=== PATIENT | male | born 1940 | race Caucasian/White ===

== ENCOUNTER 2016-09-13 21:38 | Emergency (ER) | payer MEDICARE ==
[2013-02-24 06:40] VITALS: BMI 35.4
[~2016-09-13 21:38] MED LIST: ASPIRIN325 MG PO; NORCO 10/325 TA1 TA1 PO; PLAVIX75 MG PO; PRAVACHOL10 MG; SOMA350 MG PO
== END 2016-09-14 00:26 | disposition home or self-care (01) ==
LOC: D.ER 21:38
DX: T78.3XXA Angioneurotic edema, initial encounter (principal); I10 Essential (primary) hypertension

== ENCOUNTER → 2017-01-19 07:43 | Outpatient (CLI) | payer MEDICARE ==
[2013-02-24 06:40] VITALS: BMI 35.4
== END | disposition home or self-care (01) ==
LOC: D.RAD 07:43
DX: M54.5 Low back pain (principal)

== ENCOUNTER 2017-05-19 07:23 | Outpatient (CLI) | payer MEDICARE ==
[~2017-05-19] VITALS: Ht 167.6 cm; Wt 100.0 kg
--- NOTE | ~2017-05-19 | HEMODYNAMI ---
PATIENT:LILLY GOOD MEDICAL RECORD: [id number] : 38 LOCATION:[facility] ADMISSION DATE: 05/19/17 Generatedon:05/19/20179:04 Patient name: LILLY GOOD Patient #: [id number] SSN: D OB: 1940 Date of study: 05/19/2017 Page: Of Hemodynamic Procedure Report Patient Data Patient Demographics Procedure consent was obtained First Name: LILLY Gender: Male Last Name: FLORENTINO : 1940 [facility] Initial: ZO Age: 77 year(s) Patient #: [id number] Race: Unknown Additional ID: [id number] Contact details Address: [facility] [address] State: [place] City: [place] Zip code: [address] Admission Admission Data Admission Date: 05/19/2017 Admission Time: 7:23 Procedure Procedure Types Cath Procedure Diagnostic Procedure LHC LHC w/Coronaries Miscellaneous Procedures Moderate Sedation up to 15 minutes Procedure Description Procedure Date Procedure Date: 05/19/2017 Procedure Start Time: 8:50 Procedure End Time: 9:01 Procedure Staff Name Function Ricardo Perez MD Performing Physician Cindy Sears RT Monitor Diane Goetz RT Scrub Sera Parker RN Nurse Procedure Data Cath Procedure Fluoroscopy Diagnostic fluoroscopy Total fluoroscopy Time: 2.6 time: 2.6 min min Diagnostic fluoroscopy Total fluoroscopy dose: 982 dose: 982 mGy mGy Contrast Material Contrast Material Type Amount (ml) Isovue 300 96 Entry Location Entry Primary Successful Side Size Upsize Upsize Entry Closure Succes sful Closure Location (Fr) 1 (Fr) 2 (Fr) Remarks Device Remarks Femoral Right 5 Fr 6 Fr Exoseal artery Short Estimated blood loss: 10 ml Diagnostic catheters Device Type Used For End Catheter Placement MULTIPACK Pigtail 5 Fr Procedure catheter MULTIPACK JL 4.0 5Fr Procedure catheter MULTIPACK 3DRC 5Fr Procedure catheter Procedure Complications No complications Procedure Medications Medication Administration Route Dosage 0.9% NaCl I.V. 100 ml/hr Oxygen NC 2 l/min Lidocaine 2% added to field 20 Heparin Flush Bag added to field 2 bags (1000units/500ml NS) Fentanyl I.V. 50 mcg Versed I.V. 2 mg Fentanyl I.V. 50 mcg Integrilin (Bolus I.V. 9 ml 2mg/ml) Heparin Bolus I.V. 4000 units Plavix P.O. 600 mg Hemodynamics Rest Heart Rate: 63 (bpm) Snapshots Pre Cath Intra NCS Post Cath Vital Signs Time Heart Resp SPO2 etCO2 NIBP (mmHg) Rhythm Pain Sedation Rate (ipm) (%) (mmHg) Status Level (bpm) 8:41:19 76 19 97 15.7 142/84(118) NSR 0 (11) 10(A) , No pain 8:46:08 60 16 97 34.3 132/79(106) NSR 0 (11) 10(A) , No pain 8:50:18 73 16 96 12.7 125/72(102) NSR 0 (11) 9(A) , No pain 8:54:32 69 16 96 32.8 121/76(99) NSR 0 (11) 9(A) , No pain 8:58:46 69 19 95 38.1 123/69(101) NSR 0 (11) 10(A) , No pain Medications Time Medication Route Dose Verified Delivered Reason Note s Effectiveness by by 8:40:27 0.9% NaCl I.V. 100ml/hr Ricardo Zamora used for Chris Parker RN procedure 8:40:35 Oxygen NC 2 l/min Ricardo Zamora Per physician Chris Parker RN 8:40:43 Lidocaine 2% added 20ml Ricardo Silva for local to vial Chris Perez MD anesthetic field 8:40:51 Heparin Flush added 2 bags Ricardo Silva used for Bag to Chris Perez MD procedure (1000units/500ml field NS) 8:48:16 Fentanyl I.V. 50 mcg Ricadro Zamora for sedation Chris Parker RN 8:48:24 Versed I.V. 2 mg Ricardo Potterfany for sedation Chris Parker RN 8:51:48 Fentanyl I.V. 50 mcg Ricardo Zamora for sedation Chris Parker RN 8:55:12 Heparin Bolus I.V. 4000 Ricardo Zamora for veri fied units Chris Parker RN anticoagulation by 8:56:12 Integrilin I.V. 9ml Ricardo Zamora for wast e (Bolus 2mg/ml) Chris Parker RN anticoagulation 1ML 9:03:16 Plavix P.O. 600 mg Ricardo Zamora for Chris Parker RN antiplatelet therapy Procedure Log Time Note 8:27:31 Procedure type changed to Cath procedure, Diagnostic procedure, LHC, LHC w/Coronaries, Miscellaneous Procedures, Moderate Sedation up to 15 minutes 8:33:57 Diagnostic Cath status Elective 8:34:02 Sera Parker RN sent for patient. Start room use. 8:34:03 Time tracking: Regular hours 8:34:08 Plan of Care:Hemodynamics will remain stable., Cardiac rhythm will remain stable., Comfort level will be maintained., Respiratory function will remain adequate., Patient/ family verbilizes understanding of procedure., Procedure tolerated without complication., Recovers from procedure without complications.. 8:34:15 Patient received from Pre/Post Procedure Room to CCL 2 Alert and oriented. Tansferred to table in Supine position. 8:34:17 Warm blankets applied, and ran hugger turned on for patient comfort. 8:34:18 Correct patient and procedure confirmed by team. 8:34:20 Signed procedure consent form obtained from patient. 8:36:15 ECG and BP/O2 sat monitors applied to patient. 8:36:22 H&P Date Dictated: 05/19/2017 H&P Addendum completed by physician on day of procedure. (MUST COMPLETE FOR ALL OUTPATIENTS), New H&P dictated by physician.. 8:36:23 Pre-procedure instructions explained to patient. 8:36:23 Pre-op teaching completed and patient verbalized understanding. 8:36:25 Family in waiting room. 8:36:26 Patient NPO since Midnight. 8:36:29 Is the patient allergic to Iodine/contrast media? No. 8:36:30 Was the patient premedicated? No 8:36:32 Is patient on blood thinner?No 8:36:38 Patient diabetic? No. 8:36:40 Previous problem with sedation/anesthesia? No ? 8:36:41 Snore? Yes 8:36:42 Sleep apnea? No 8:36:43 Deviated septum? No 8:36:44 Opens mouth fully? Yes 8:36:45 Sticks out tongue? Yes 8:36:47 Airway obstruction? No ? 8:36:50 Dentures? No ? 8:36:55 Pre procedure: right dorsailis pedis pulse 1+ Palpable, but thready & weak; easily obliterated 8:36:56 Pre procedure: left dorsailis pedis pulse 1+ Palpable, but thready & weak; easily obliterated 8:36:58 Patient pain scale 0/10 ?. 8:37:03 IV patent on arrival in left forearm with 0.9% NaCl at [facility]. 8:37:07 Lab results completed and on chart. 8:37:45 Right groin area was prepped with chlora-prep and draped in sterile fashion 8:37:47 Alarms reviewed by R. N. 8:37:47 Sharps counted by scrub and verified by R.N. 8:40:13 Vital chart was started 8:40:27 0.9% NaCl 100ml/hr I.V. was administered by Sera Parker RN; used for procedure; 8:40:35 Oxygen 2 l/min NC was administered by Sera Parker RN; Per physician; 8:40:43 Lidocaine 2% 20ml vial added to field was administered by Ricardo Perez MD; for local anesthetic; 8:40:51 Heparin Flush Bag (1000units/500ml NS) 2 bags added to field was administered by Ricardo Perez MD; used for procedure; 8:42:43 Baseline sample Acquired. 8:42:48 Full Disclosure recording started 8:43:01 Physician paged 8:47:23 Physician arrived 8:47:24 --------ALL STOP TIME OUT------ 8:47:25 Final Timeout: patient, procedure, and site verified with staff and physician. All members of the team are in agreement. 8:47:26 Right groin site verified by team. 8:47:31 Physical assessment completed. ASA score P 2 - A patient with mild systemic disease as per Ricardo Perez MD. 8:47:41 Sedation plan: IV Moderate Sedation Medication:Versed, Fentanyl 8:47:53 Use device set Femoral Dx 8:48:16 Fentanyl 50 mcg I.V. was administered by Sera Parker RN; for sedation; 8:48:24 Versed 2 mg I.V. was administered by Sera Parker RN; for sedation; 8:50:32 Procedure started. 8:50:42 Local anesthetic to right femoral artery with Lidocaine 2% by Ricardo Perez MD.INITIAL ACCESS ONLY 8:50:53 A 5 Fr sheath was inserted into the Right Femoral artery 8:51:02 ACIST Syringe (56285) opened to sterile field. 8:51:02 Bag Decanter (2002S) opened to sterile field. 8:51:03 Medline Cath Pack ([id number]) opened to sterile field. 8:51:03 SHEATH 5FR [place] (RQX904) opened to sterile field. 8:51:04 DIAGNOSTIC WIRE .035 260cm J wire (616158) opened to sterile field. 8:51:06 ACIST Hand Control (79566) opened to sterile field. 8:51:06 ACIST Manifold (63209) opened to sterile field. 8:51:07 DIAGNOSTIC Multipack 5Fr catheter set (WE4853) opened to sterile field. 8:51:09 Tegaderm 4 x 4 (1626W) opened to sterile field. 8:51:10 PERCUTANEOUS ENTRY 19GA needle opened to sterile field. 8:51:30 LV angiography performed. 8:51:38 A MULTIPACK Pigtail 5 Fr catheter was advanced over the wire and used for Procedure. 8:51:45 EF : 55 % 8:51:48 Fentanyl 50 mcg I.V. was administered by Sera Parker RN; for sedation; 8:51:48 Catheter removed. 8:51:56 A MULTIPACK JL 4.0 5Fr catheter was advanced over the wire and used for Procedure. 8:53:08 Catheter removed. 8:53:22 A MULTIPACK 3DRC 5Fr catheter was advanced over the wire and used for Procedure. 8:53:33 RCA angiography performed. 8:55:01 INFLATOR Merit BasixCompak (TQ2051) opened to sterile field. 8:55:02 SHEATH 6FR [place] (IJU926) opened to sterile field. 8:55:03 WHISPER 190cm wire ([id number]) opened to sterile field. 8:55:10 Catheter removed. 8:55:12 Heparin Bolus 4000 units I.V. was administered by Sera Parker RN; for anticoagulation; verified by 8:55:22 Sheath upsized to a 6 Fr Short. 8:56:12 Integrilin (Bolus 2mg/ml) 9ml I.V. was administered by Sera Parker RN; for anticoagulation; waste 1ML 8:56:22 GUIDE 6FR AR 2.0 catheter ([id number]) opened to sterile field. 8:56:33 6 Fr AR2 guide catheter was inserted over the wire 8:56:38 Whisper wire advanced. 8:56:53 Wire advanced across lesion. 8:56:53 Wire advanced across lesion. 8:58:38 Inflation Number: 1 A CHICHO RX 2.5 x 12 stent ([id number]) was prepped and advanced across the R PDA. The stent was deployed at 11 CHANI for 0:10 (min:sec). 8:59:08 EXOSEAL 6Fr (EX600) opened to sterile field. 8:59:21 Wire removed. 8:59:22 Guide catheter removed. 8:59:32 Sheath removed intact; hemostasis achieved with Exoseal to the Right Femoral artery. 8:59:35 Procedure ended.(Physican Out) 8:59:46 Fluoroscopy time 02.60 minutes. 8:59:50 Fluoroscopy dose: 982 mGy 8:59:50 Flurop Dose total: 982 8:59:56 Contrast amount:Isovue 300 96ml. 9:00:00 Sharps counted by scrub and verified by R.N. 9:00:03 Insertion/operative site no bleeding no hematoma. 9:00:06 Post-op/insertion site Right Femoral artery dressed using a 4 x 4 and Tegaderm. 9:00:10 Post right femoral artery:stable 9:00:12 Post Procedure Pulses reassessed and unchanged 9:00:19 Post-procedure physical assessment completed. ASA score P 2 - A patient with mild systemic disease as per Ricardo Perez MD. 9:00:27 Post procedure rhythm: unchanged. 9:00:31 Estimated blood loss: 10 ml 9:00:32 Post procedure instruction explained to patient.Patient verbalizes understanding. 9:00:53 Procedure and supply charges have been captured, reviewed, submitted and are correct. 9:01:42 Procedure Complication : No complications 9:01:45 Vital chart was stopped 9:01:46 See physician's report for complete and final results. 9:01:47 Report given to Pre/Post Procedure Room. 9:01:51 Patient transfered to Pre/Post Procedure Room with Stretcher. 9:01:55 Procedure ended. 9:01:55 Full Disclosure recording stopped 9:02:04 ACC-PCI Only Patient was given prescriptions, or instructed by Ricardo Perez MD to start/continue the following medications upon discharge: Plavix 9:02:06 End room use (Document Last) 9:03:16 Plavix 600 mg P.O. was administered by Sera Parker RN; for antiplatelet therapy; Intervention Summary Intervention Notes Time ActionType Lesion and Equipment Used Action# Pressure Duration Attributes 8:58:38 Place stent R PDA CHICHO RX 2.5 x 1 11 00:10 12 stent ([id number]) Device Usage Item Name Manufacture Quantity Catalog Hospital Part [facility] Lot# / Number Charge Number Stock Stock Serial# Code ACIST Syringe Acist 1 56128 237543 858232 650553 20 (68285) Medical Systems Inc Bag Decanter Microtek 1 2001S 134138 29888 709012 5 (2001S) Medical Inc. Medline Cath Cardinal 1 [id number] 894291 14081 089076 5 Pack Health ([id number]) SHEATH 5FR Terumo 1 FZP665 417639 531639 093683 40 [place] (NFI634) DIAGNOSTIC St Reji 1 [id number] 086795 435851 411858 30 WIRE .035 260cm J wire (226290) ACIST Hand Acist 1 05784 457213 975263 186814 5 Control Medical (45385) Systems Inc ACIST Manifold Acist 1 06675 919033 878917 837466 5 (73451) Medical Systems Inc DIAGNOSTIC Cardinal 1 PC7118 343253 47876 242257 30 Multipack 5Fr Health catheter set (QE9266) Tegaderm 4 x 4 3M 1 1626W 306553 952578 489474 5 (1626W) PERCUTANEOUS Cook Medical 1 D49808 810863 154373 5 ENTRY 19GA needle MULTIPACK Cardinal 1 186841 5 Pigtail 5 Fr Health catheter MULTIPACK JL Cardinal 1 717046 5 4.0 5Fr Health catheter MULTIPACK 3DRC Cardinal 1 291677 5 5Fr catheter Health INFLATOR Merit Merit 1 IM4273 292532 786547 897292 15 Media [facility] Medical (QG2470) SHEATH 6FR Terumo 1 ITE654 257958 888482 664891 40 [place] (SEQ389) WHISPER 190cm [place] 1 [id number] 733135 445351 592925 5 wire Vascular ([id number]) GUIDE 6FR AR Medtronic 1 [id number] 266712 85795 756431 1 2.0 catheter (ZS7ED79) CHICHO RX 2.5 x Medtronic 1 [id number] 780818 5725484 597379 5 [id number] 12 stent ([id number]) EXOSEAL 6Fr Cardinal 1 EX600 000075 477236 007620 10 (EX600) Health Signature Audit [place] Stage Time Signature Unsigned Intra-Procedure 05/19/2017 Cindy Sears 9:04:35 AM RT(R) Signatures Monitor : Cindy Sears Signature : RT Date : Time : [place] [id number] [place] [address]
--- NOTE | ~2017-05-19 | OP ---
PATIENT NAME: LILLY GOOD MEDICAL RECORD: [id number] :38 LOCATION:D.CAT ADMISSION DATE: SURGEON: SERENITY SEWELL MD DATE OF OPERATION: 05/19/2017 PROCEDURES: 1. PTCA stent to RCA. 2. Left heart catheterization. 3. Selective coronary angiography. 4. Left ventriculogram. INDICATION: Angina and coronary artery disease. PROCEDURE IN DETAIL: After informed consent was obtained and after a detailed explanation of the risks, benefits as well as alternative therapies, the patient elected to proceed with angiogram and angioplasty. The right femoral area was prepped and draped in normal sterile fashion. Right femoral artery was cannulated via modified Seldinger technique with placement of 6-Colomb[place] sheath. All catheters exchanged through this sheath. FINDINGS: Left ventriculogram was performed in standard 30-degree MANZANO view, reveals good cardiac wall motion throughout all segments. Overall ejection fraction estimated at 55%. SELECTIVE CORONARY ANGIOGRAPHY: 1. Left main showed no significant angiographic disease. 2. Left anterior descending has previously placed stents, these are widely patent with no significant restenosis. No disease elsewise throughout the LAD or its branches. 3. Left circumflex has 95% stenosis in the mid distal vessel. 4. Right coronary artery has 80% stenosis of the PDA. PTCA STENT OF THE RIGHT CORONARY ARTERY: The stent used was a 2.5 x 12 mm [place]. Result was 0% residual stenosis. OVERALL IMPRESSION: Successful percutaneous transluminal coronary angioplasty stent of the right coronary artery going from 80% initial stenosis to 0% residual stenosis. PLAN: PTCA stent of the left circumflex in the near future. TRANSINT:[id number] Voice Confirmation ID: [id number] DOCUMENT ID: [id number] SERENITY SEWELL MD at 1323 CC: [id number] DICTATION DATE: 05/19/17 0903 BOWLING BALL MARKER: 05/19/17 1113 [facility] CLI 05/19/[address] [address]
--- NOTE | ~2017-05-19 | HP ---
PATIENT: LILLY RAZO MEDICAL RECORD: [id number] ACCOUNT: [id number] LOCATION:[facility]QU[facility] : 38 ADMISSION DATE: 05/19/17 HISTORY AND PHYSICAL EXAMINATION DIAGNOSES: 1. Angina. 2. Coronary artery disease. 3. Hypertension. 4. Hyperlipidemia. 5. Abnormal nuclear stress test. HISTORY OF PRESENT ILLNESS: Mr. Razo presents with increasing anginal symptomatology, underwent risk stratification with stress testing revealing significant reversible ischemia, now brought for cardiac catheterization. REVIEW OF SYSTEMS: The patient reports easy bruising but reports no swollen glands. The patient reports no fever, no night sweats, no significant weight gain, no significant weight loss. No significant exercise tolerance. The patient reports no dry eyes, no irritation, no vision change. Patient reports no difficulty hearing and no ear pain. Patient reports no frequent nose bleeds or nose and sinus problems. Patient reports on arm pain on exertion. No shortness of breath while lying down. No history of heart murmur. Patient reports no cough, no wheezing or coughing up blood. Patient reports no abdominal pain, no vomiting. Normal appetite. No diarrhea and not vomiting blood. No nausea and no constipation. Patient reports no incontinence. No difficulty urinating. No hematuria. No increased frequency. Patient reports no muscle aches. No weakness, no arthralgias, no back pain. No swelling of the extremities. Patient reports no abnormal mole, no jaundice, no rashes. Reports no loss of consciousness. No weakness and no numbness. No seizures, dizziness, or headaches. The patient reports no depression, no sleep disturbance, feeling safe in a relationship and no alcohol abuse. Patient reports on fatigue. Reports no runny nose or sinus pressure. No itching, no hives, and no frequent sneezing. PHYSICAL EXAMINATION: GENERAL APPEARANCE: Well-nourished, well-developed, appears stated age. Level of distress, comfortable. PSYCHIATRIC: Mental status, alert, normal affect. Orientation, oriented to time, place and person. EYES: Lids and conjunctiva, noninjected. No discharge, no pallor. ENT: Lips, teeth, gums, normal dentition. Oropharynx, no cyanosis, no pallor. NECK: Carotid arteries, bilateral normal upstroke, no bruits, no thrills. JUGULAR VEINS: No jugular venous pressure or distention. CERVICAL LYMPH NODES: Nontender, nonenlarged. THYROID: Not enlarged. Nontender. No nodules. LUNGS: Respiratory effort, unlabored. CHEST: Normal curvature. No thoracic deformity. No chest wall tenderness. Percussion, resonant. Auscultation, clear. No wheezes, no rales, no rhonchi. CARDIOVASCULAR: Precordial exam, nondisplaced. No heaves or pericardial thrills. Rate and rhythm, regular. Heart sounds, normal S1, normal S2. No S3, no gallop, no rub. Systolic murmur, not heard. Diastolic murmur, not heard. EXTREMITIES: No cyanosis, no edema. Peripheral pulses, full and equal in all extremities, except as noted. No bruits appreciated. ABDOMEN: Soft, nondistended. Normal aorta. No bruit. Nontender. No masses. HISTORY AND PHYSICAL [id number] LILLY RAZO Liver, nontender, no hepatomegaly. Spleen, nontender, no splenomegaly. MUSCULOSKELETAL: No joint tenderness. No joint swelling. No erythema. NEUROLOGICAL: Normal gait, normal strength, normal tone. SKIN: Warm and dry. OVERALL IMPRESSION: Anginal symptomatology with abnormal nuclear stress test. We will proceed with coronary angiography. Further care depends upon findings of the angiography. TRANSINT:[id number] Voice Confirmation ID: [id number] DOCUMENT ID: [id number] SERENITY SEWELL MD at 1323 CC: [id number] DICTATION DATE: 05/19/17 0844 CDS SALES ADVISOR: 05/19/17 0855 [facility] CLI 05/19/17 [place] [id number] [place] [id number]
[~2017-05-19 07:23] MED LIST changes: -PRAVACHOL10 MG; +PRAVACHOL20 MG PO
[2017-05-19] MEDS ORDERED: CARTIA XT180 MG PO (07:37)
[2017-05-19] MEDS ORDERED: HCTZ25 MG PO (07:37)
[2017-05-19 07:55] LABS: BASOPHILS 0.3 % (0-2); EOSINOPHILS 2.6 % (0-7); HEMATOCRIT 45.9 % (42.0-54.0); HEMOGLOBIN 15.4 g/dL (13.5-17.5); IMMATURE GRANULOCYTES 0.1 % (0-5); LYMPHOCYTES 45.7 % (15-50); MCH 30.7 pg (26.0-34.0); MCHC 33.6 g/dL (31.0-37.0); MCV 91.4 fL (80.0-100.0); MEAN PLATELET VOLUME 11.3 fL (7.4-10.4); MONOCYTES 12.3 % (2-11); PLATELET COUNT 159 10x3/uL (130-400); RBC 5.02 10x6/uL (4.20-6.10); RDW 14.7 % (11.5-14.5); WBC 6.8 10x3/uL (4.8-10.8)
[2017-05-19 07:59] VITALS: BP 166/83; Ht 167.6 cm; Wt 100.0 kg
[2017-05-19 08:03] LABS: ANION GAP 9.5 mmol/L (8-16); CARBON DIOXIDE 29.3 mmol/L (21.0-32.0); CREATININE - SERUM 1.1 mg/dL (0.6-1.3); POTASSIUM - SERUM 3.8 mmol/L (3.5-5.1)
[2017-05-19] MEDS ORDERED: BAYER CHEWABLE81 MG PO (09:43)
[2017-05-19] MEDS ORDERED: PLAVIX75 MG PO (09:43)
== END 2017-05-19 13:00 | disposition home or self-care (01) ==
LOC: D.CATH 07:23
PROVIDERS: Internal Medicine Interventional Cardiology
DX: I25.119 Atherosclerotic heart disease of native coronary artery with unspecified angina pectoris (principal); I10 Essential (primary) hypertension; E78.5 Hyperlipidemia, unspecified; R94.30 Abnormal result of cardiovascular function study, unspecified; Z01.812 Encounter for preprocedural laboratory examination
CPT/HCPCS: 93458; C9600

== ENCOUNTER 2017-05-21 07:41 | Outpatient (CLI) | payer MEDICARE ==
[~2017-05-21] VITALS: Ht 167.6 cm; Wt 100.0 kg
--- NOTE | ~2017-05-21 | HEMODYNAMI ---
PATIENT:LILLY GOOD MEDICAL RECORD: [id number] : 38 LOCATION:[facility] ADMISSION DATE: 05/21/17 Generatedon:05/21/201710:14 Patient name: LILLY GOOD Patient #: [id number] SSN: D OB: 1940 Date of study: 05/21/2017 Page: Of Hemodynamic Procedure Report Patient Data Patient Demographics Procedure consent was obtained First Name: LILLY Gender: Male Last Name: FLORENTINO : 1940 [facility] Initial: ZO Age: 77 year(s) Patient #: [id number] Race: Unknown Additional ID: [id number] Contact details Address: [facility] [address] State: [place] City: [place] Zip code: [address] Admission Admission Data Admission Date: 05/21/2017 Admission Time: 10:00 Procedure Procedure Types Cath Procedure PCI Procedure Coronary Stent Miscellaneous Procedures Moderate Sedation up to 15 minutes Procedure Description Procedure Date Procedure Date: 05/21/2017 Procedure Start Time: 9:58 Procedure End Time: 10:12 Procedure Staff Name Function Ricardo Perez MD Performing Physician Cindy Sears RT Monitor Diane Goetz RT Scrub Sera Parker RN Nurse Procedure Data Cath Procedure Fluoroscopy Diagnostic fluoroscopy Total fluoroscopy Time: 4 time: 4 min min Diagnostic fluoroscopy Total fluoroscopy dose: 540 dose: 540 mGy mGy Contrast Material Contrast Material Type Amount (ml) Isovue 300 68 Entry Location Entry Primary Successful Side Size Upsize Upsize Entry Closure Succes sful Closure Location (Fr) 1 (Fr) 2 (Fr) Remarks Device Remarks Femoral Right 6 Fr Exoseal artery Short Estimated blood loss: 10 ml Procedure Complications No complications Procedure Medications Medication Administration Route Dosage 0.9% NaCl I.V. 100 ml/hr Oxygen NC 2 l/min Lidocaine 2% added to field 20 Heparin Flush Bag added to field 2 bags (1000units/500ml NS) Fentanyl I.V. 50 mcg Versed I.V. 1 mg Versed I.V. 0.5 mg Fentanyl I.V. 25 mcg Heparin Bolus I.V. 4000 units Versed I.V. 0.5 mg Fentanyl I.V. 25 mcg Hemodynamics Rest Heart Rate: 81 (bpm) Snapshots Pre Cath Intra NCS Post Cath Vital Signs Time Heart Resp SPO2 etCO2 NIBP (mmHg) Rhythm Pain Sedation Rate (ipm) (%) (mmHg) Status Level (bpm) 9:44:33 74 16 95 0 137/103(125) Paced 0 (11) 10(A) , No pain 9:49:37 78 14 100 35.2 139/78(123) Paced 0 (11) 10(A) , No pain 9:54:53 77 14 96 15.7 133/71(115) Paced 0 (11) 10(A) , No pain 9:59:05 79 14 97 31.5 143/85(115) Paced 0 (11) 9(A) , No pain 10:03:21 81 14 96 33 152/81(124) Paced 0 (11) 9(A) , No pain 10:07:43 78 14 96 30 146/77(111) Paced 0 (11) 10(A) , No pain 10:12:01 79 10 97 28.5 133/85(122) Paced 0 (11) 10(A) , No pain Medications Time Medication Route Dose Verified Delivered Reason Not es Effectiveness by by 9:49:05 0.9% NaCl I.V. 100ml/hr Ricardo Zamora used for Chris Parker RN procedure 9:49:16 Oxygen NC 2 l/min Ricardo Zamora Per physician Chris Parker RN 9:49:22 Lidocaine 2% added 20ml Ricardo Silva for local to vial Chris Perez MD anesthetic field 9:49:31 Heparin Flush added 2 bags Ricardo Silva used for Bag to Chris Perez MD procedure (1000units/500ml field NS) 9:50:07 Fentanyl I.V. 50 mcg Ricardo Zamora for sedation Chris Parker RN 9:50:15 Versed I.V. 1 mg Ricardo Zamora for anxiety Chris Parker RN 9:56:00 Versed I.V. 0.5 mg Ricardo Zamora for anxiety Chris Parker RN 9:56:05 Fentanyl I.V. 25 mcg Ricardo Zamora for sedation Chris Parker RN 10:00:11 Heparin Bolus I.V. 4000 Ricardo Zamora for serina ified units Chris Parker RN anticoagulation by 10:01:48 Versed I.V. 0.5 mg Ricardo Zamora for anxiety Chris Parker RN 10:01:53 Fentanyl I.V. 25 mcg Ricardo Zamora for sedation Chris Parker RN Procedure Log Time Note 9:35:20 Diagnostic Cath status Elective 9:35:22 Diane Goetz RT(R) sent for patient. Start room use. 9:35:23 Time tracking: Regular hours 9:35:27 Plan of Care:Hemodynamics will remain stable., Cardiac rhythm will remain stable., Comfort level will be maintained., Respiratory function will remain adequate., Patient/ family verbilizes understanding of procedure., Procedure tolerated without complication., Recovers from procedure without complications.. 9:36:32 Patient received from Pre/Post Procedure Room to CCL 2 Alert and oriented. Tansferred to table in Supine position. 9:36:33 Warm blankets applied, and ran hugger turned on for patient comfort. 9:36:33 Correct patient and procedure confirmed by team. 9:36:35 Signed procedure consent form obtained from patient. 9:36:36 ECG and BP/O2 sat monitors applied to patient. 9:42:24 Vital chart was started 9:44:49 Baseline sample Acquired. 9:44:54 Rhythm: sinus rhythm 9:44:56 Full Disclosure recording started 9:47:27 H&P Date Dictated: 05/19/2017 Within 30 days and on chart., H&P Addendum completed by physician on day of procedure. (MUST COMPLETE FOR ALL OUTPATIENTS). 9:47:28 Pre-procedure instructions explained to patient. 9:47:28 Pre-op teaching completed and patient verbalized understanding. 9:47:31 Family in waiting room. 9:47:33 Patient NPO since Midnight. 9:47:39 Is the patient allergic to Iodine/contrast media? No. 9:47:57 Is patient on blood thinner?Yes 9:48:03 ACC The patient was administered the following blood thiners within the last 24 hours: ACCPlavix 9:48:05 Patient diabetic? No. 9:48:09 Snore? Yes 9:48:10 Sleep apnea? No 9:48:17 Dentures? No ? 9:49:05 0.9% NaCl 100ml/hr I.V. was administered by Sera Parker RN; used for procedure; 9:49:16 Oxygen 2 l/min NC was administered by Sera Parker RN; Per physician; 9:49:21 IV patent on arrival in right forearm with 0.9% NaCl at [facility]. 9:49:22 Lidocaine 2% 20ml vial added to field was administered by Ricardo Perez MD; for local anesthetic; 9:49:31 Heparin Flush Bag (1000units/500ml NS) 2 bags added to field was administered by Ricardo Perez MD; used for procedure; 9:49:31 Lab results completed and on chart. 9:49:36 Right groin area was prepped with chlora-prep and draped in sterile fashion 9:49:37 Alarms reviewed by R. N. 9:49:38 Sharps counted by scrub and verified by R.N. 9:49:39 Physician arrived 9:49:41 --------ALL STOP TIME OUT------ 9:49:41 Final Timeout: patient, procedure, and site verified with staff and physician. All members of the team are in agreement. 9:49:44 Right groin site verified by team. 9:49:48 Physical assessment completed. ASA score P 2 - A patient with mild systemic disease as per Ricardo Perez MD. 9:49:52 Sedation plan: IV Moderate Sedation Medication:Versed, Fentanyl 9:50:07 Fentanyl 50 mcg I.V. was administered by Sera Parker RN; for sedation; 9:50:15 Versed 1 mg I.V. was administered by Sera Parker RN; for anxiety; 9:52:37 Zero performed for pressure channel P1 9:56:00 Versed 0.5 mg I.V. was administered by Sera Parker RN; for anxiety; 9:56:05 Fentanyl 25 mcg I.V. was administered by Sera Parker RN; for sedation; 9:57:52 Procedure started. 9:58:05 Use device set [facility] PCI 9:58:17 Local anesthetic to right femoral artery with Lidocaine 2% by Ricardo Perez MD.INITIAL ACCESS ONLY 9:59:01 Zero performed for pressure channel P1 9:59:08 Zero performed for pressure channel P1 9:59:27 A 6 Fr Short sheath was inserted into the Right Femoral artery 9:59:32 INFLATOR Merit BaspreciousCompak ([id number]) opened to sterile field. 9:59:33 SHEATH 6FR Lincoln ([id number]) opened to sterile field. 9:59:52 CHOICE PT Extra Support 182cm wire ([id number]) opened to sterile field. 10:00:11 Heparin Bolus 4000 units I.V. was administered by Sera Parker RN; for anticoagulation; verified by 10:00:53 6 Fr XB guide catheter was inserted over the wire 10:00:59 pt ex wire advanced. 10:01:05 Wire advanced across lesion. 10:01:48 Versed 0.5 mg I.V. was administered by Sera Parker RN; for anxiety; 10:01:53 Fentanyl 25 mcg I.V. was administered by Sera Parker RN; for sedation; 10:02:36 Inflation number: 1 A EUPHORA 2.0 x 15 Balloon ([id number]) was prepped and advanced across the Mid CX, then inflated to 7 CHANI for 0:12 (min:sec). 10:02:50 Inflation number: 2 The EUPHORA 2.0 x 15 Balloon ([id number]) was reinflated across the Mid CX, to 7 CHANI for 0:08 (min:sec). 10:03:09 Balloon removed over the wire. 10:05:36 Inflation Number: 3 A CHICHO RX 2.25 x 22 stent ([id number]) was prepped and advanced across the Mid CX. The stent was deployed at 9 CHANI for 0:09 (min:sec). 10:06:01 Inflation number: 4 The stent balloon was then re-inflated across the Mid CX to 15 CHANI for 0:08 (min:sec). 10:06:14 Stent balloon re-inserted over wire. 10:06:21 EXOSEAL 6Fr (EX600) opened to sterile field. 10:08:04 Sheath removed intact; hemostasis achieved with Exoseal to the Right Femoral artery. 10:08:14 Procedure ended.(Physican Out) 10:08:24 Fluoroscopy time 04.00 minutes. 10:09:22 Flurop Dose total: 540 10:: Fluoroscopy dose: 540 mGy 10:09:26 Contrast amount:Isovue 300 68ml. 10:09:28 Sharps counted by scrub and verified by R.N. 10:09:30 Insertion/operative site no bleeding no hematoma. 10:09:34 Post-op/insertion site Right Femoral artery dressed using a 4 x 4 and Tegaderm. 10:09:46 Post Procedure Pulses reassessed and unchanged 10:09:52 Post-procedure physical assessment completed. ASA score P 2 - A patient with mild systemic disease as per Ricardo Perez MD. 10:09:55 Post procedure rhythm: unchanged. 10:09:57 Estimated blood loss: 10 ml 10:09:59 Post procedure instruction explained to patient.Patient verbalizes understanding. 10:10:09 Procedure type changed to Cath procedure, PCI procedure, Coronary Stent, Miscellaneous Procedures, Moderate Sedation up to 15 minutes 10:10:10 Procedure and supply charges have been captured, reviewed, submitted and are correct. 10:10:35 Use device set Femoral Dx 10:10:40 PERCUTANEOUS ENTRY 19GA needle opened to sterile field. 10:10:41 Tegaderm 4 x 4 (1626W) opened to sterile field. 10:10:44 ACIST Manifold (10837) opened to sterile field. 10:10:45 ACIST Hand Control (88217) opened to sterile field. 10:10:49 DIAGNOSTIC WIRE .035 260cm J wire (760126) opened to sterile field. 10:10:51 Medline Cath Pack ([id number]) opened to sterile field. 10:10:52 Bag Decanter (2002S) opened to sterile field. 10:10:53 ACIST Syringe (94828) opened to sterile field. 10:12:19 Procedure Complication : No complications 10:12:25 Vital chart was stopped 10:12:25 See physician's report for complete and final results. 10:12:27 Report given to Pre/Post Procedure Room. 10:12:30 Patient transfered to Pre/Post Procedure Room with Stretcher. 10:12:32 Procedure ended. 10:12:32 Full Disclosure recording stopped 10:12:35 End room use (Document Last) Intervention Summary Intervention Notes Time ActionType Lesion and Equipment Used Action# Pressure Duration Attributes 10:02:36 Inflate Mid CX EUPHORA 2.0 x 1 7 00:12 balloon 15 Balloon ([id number]) 10:02:50 Reinflate Mid CX EUPHORA 2.0 x 2 7 00:08 balloon 15 Balloon ([id number]) 10:05:36 Place stent Mid CX CHICHO RX 2.25 x 3 9 00:09 22 stent ([id number]) 10:06:01 Reinflate Mid CX CHICHO RX 2.25 x 4 15 00:08 stent 22 stent balloon ([id number]) Device Usage Item Name Manufacture Quantity Catalog Number Hospital Part Current M inimal Lot# / Charge Number Stock Stock Serial# Code INFLATOR Merit Merit 1 [id number] 113854 568853 [id number] 1 5 Revisu ([id number]) SHEATH 6FR Terumo 1 MFI189 738609 232716 748669 4 0 Lincoln ([id number]) CHOICE PT Arcanum 1 [id number] 016805 511032 927892 5 Extra Support Scientific 182cm wire ([id number]) EUPHORA 2.0 x Medtronic 1 [id number] 304327 303324 530695 5 [id number] 15 Balloon ([id number]) CHICHO RX 2.25 x Medtronic 1 [id number] 943241 5970865 269339 5 [id number] 22 stent ([id number]) EXOSEAL 6Fr Cardinal 1 EX600 141009 126184 196019 1 0 (EX600) [facility] PERCUTANEOUS [facility] 1 V31834 662122 314519 5 ENTRY 19GA needle Tegaderm 4 x 4 3M 1 1626W 612728 245462 854060 5 (1626W) ACIST Manifold Acist 1 99869 426602 113297 353388 5 (98805) Medical Systems Inc ACIST Hand Acist 1 07756 074932 200837 057666 5 Control Medical (36664) Systems Inc DIAGNOSTIC St Reji 1 738195 072744 708504 559363 3 0 WIRE .035 260cm J wire (759990) Medline Cath Cardinal 1 [id number] 473540 [address] [facility] OmniVec ([id number]) Bag Decanter Microtek 1 2002S 709314 14689 941969 5 () Medical Inc. ACIST Syringe Acist 1 15026 338100 514883 059216 2 0 (80989) Medical Systems Inc Signature Audit [place] Stage Time Signature Unsigned Intra-Procedure 05/21/2017 Cindy Sears 10:14:32 AM RT(R) Signatures Monitor : Cindy Sears Signature : RT Date : Time : [id number] [place] [address]
--- NOTE | ~2017-05-21 | HP ---
PATIENT: LILLY GOOD MEDICAL RECORD: [id number] ACCOUNT: [id number] LOCATION:JACQUES : 38 ADMISSION DATE: 05/21/17 HISTORY AND PHYSICAL EXAMINATION ADMITTING DIAGNOSES: 1. Angina. 2. Coronary artery disease. 3. Recent percutaneous transluminal coronary angioplasty stent of the right coronary artery with concomitant disease of the left circumflex. 4. Hypertension. 5. Hyperlipidemia. HISTORY OF PRESENT ILLNESS: This is a gentleman who presents with anginal symptomatology, found to have 2-vessel disease of the RCA and circumflex, underwent successful PTCA stent of the RCA. He is now brought back for PTCA stent of circumflex. REVIEW OF SYSTEMS: The patient reports easy bruising but reports no swollen glands. The patient reports no fever, no night sweats, no significant weight gain, no significant weight loss. No significant exercise tolerance. The patient reports no dry eyes, no irritation, no vision change. Patient reports no difficulty hearing and no ear pain. Patient reports no frequent nose bleeds or nose and sinus problems. Patient reports on arm pain on exertion. No shortness of breath while lying down. No history of heart murmur. Patient reports no cough, no wheezing or coughing up blood. Patient reports no abdominal pain, no vomiting. Normal appetite. No diarrhea and not vomiting blood. No nausea and no constipation. Patient reports no incontinence. No difficulty urinating. No hematuria. No increased frequency. Patient reports no muscle aches. No weakness, no arthralgias, no back pain. No swelling of the extremities. Patient reports no abnormal mole, no jaundice, no rashes. Reports no loss of consciousness. No weakness and no numbness. No seizures, dizziness, or headaches. The patient reports no depression, no sleep disturbance, feeling safe in a relationship and no alcohol abuse. Patient reports on fatigue. Reports no runny nose or sinus pressure. No itching, no hives, and no frequent sneezing. PHYSICAL EXAMINATION: GENERAL APPEARANCE: Well-nourished, well-developed, appears stated age. Level of distress, comfortable. PSYCHIATRIC: Mental status, alert, normal affect. Orientation, oriented to time, place and person. EYES: Lids and conjunctiva, noninjected. No discharge, no pallor. ENT: Lips, teeth, gums, normal dentition. Oropharynx, no cyanosis, no pallor. NECK: Carotid arteries, bilateral normal upstroke, no bruits, no thrills. JUGULAR VEINS: No jugular venous pressure or distention. CERVICAL LYMPH NODES: Nontender, nonenlarged. THYROID: Not enlarged. Nontender. No nodules. LUNGS: Respiratory effort, unlabored. CHEST: Normal curvature. No thoracic deformity. No chest wall tenderness. Percussion, resonant. Auscultation, clear. No wheezes, no rales, no rhonchi. CARDIOVASCULAR: Precordial exam, nondisplaced. No heaves or pericardial thrills. Rate and rhythm, regular. Heart sounds, normal S1, normal S2. No S3, no gallop, no rub. Systolic murmur, not heard. Diastolic murmur, not heard. EXTREMITIES: No cyanosis, no edema. Peripheral pulses, full and equal in all HISTORY AND PHYSICAL [id number] LILLY GOOD extremities, except as noted. No bruits appreciated. ABDOMEN: Soft, nondistended. Normal aorta. No bruit. Nontender. No masses. Liver, nontender, no hepatomegaly. Spleen, nontender, no splenomegaly. MUSCULOSKELETAL: No joint tenderness. No joint swelling. No erythema. NEUROLOGICAL: Normal gait, normal strength, normal tone. SKIN: Warm and dry. OVERALL IMPRESSION: Anginal symptomatology with significant disease of the circumflex. We will proceed with percutaneous transluminal coronary angioplasty stent of the left circumflex. TRANSINT:[id number] Voice Confirmation ID: [id number] DOCUMENT ID: [id number] SERENITY SEWELL MD at 1324 CC: [id number] DICTATION DATE: 05/21/17 0953 GENERAL MILLING SUPERINTENDENT: 05/21/17 1040 [facility] CLI 05/21/17 [id number] [place] [address]
--- NOTE | ~2017-05-21 | OP ---
PATIENT NAME: LILLY GOOD MEDICAL RECORD: [id number] :38 LOCATION:D.CAT ADMISSION DATE: SURGEON: SERENITY SEWELL MD DATE OF OPERATION: 05/21/2017 PROCEDURES: 1. PTCA stent of the left circumflex. 2. Selective coronary angiography. INDICATION: Angina and coronary artery disease. PROCEDURE IN DETAIL: After informed consent was obtained and after detailed explanation of risks, benefits as well as alternative therapies, the patient elected to proceed with angiogram and angioplasty. The right femoral area was prepped and draped in normal sterile fashion. Right femoral artery was cannulated via modified Seldinger technique with placement of 6-Irish sheath. All catheters exchanged through this sheath. FINDINGS: The left circumflex has a 95% stenosis in the mid vessel. This was addressed with a 2.25 x 22 mm Donte stent. Result was 0% residual stenosis. OVERALL IMPRESSION: Successful percutaneous transluminal coronary angioplasty stent of the left circumflex going from 95% initial stenosis to 0% residual. TRANSINT:[id number] Voice Confirmation ID: [id number] DOCUMENT ID: [id number] SERENITY SEWELL MD at 1324 CC: [id number] DICTATION DATE: 05/21/17 1011 [employer] SUPERVISOR: 05/21/17 1223 [facility] CLI 05/21/[address] [address]
[~2017-05-21 07:41] MED LIST changes: +BAYER CHEWABLE81 MG PO; +CARTIA XT180 MG PO; +HCTZ25 MG PO
[2017-05-21 08:03] VITALS: Ht 167.6 cm; Wt 100.0 kg
[2017-05-21 08:21] LABS: BASOPHILS 0.2 % (0-2); EOSINOPHILS 2.4 % (0-7); HEMATOCRIT 45.3 % (42.0-54.0); HEMOGLOBIN 15.2 g/dL (13.5-17.5); IMMATURE GRANULOCYTES 0.2 % (0-5); LYMPHOCYTES 37.5 % (15-50); MCH 30.6 pg (26.0-34.0); MCHC 33.6 g/dL (31.0-37.0); MCV 91.3 fL (80.0-100.0); MEAN PLATELET VOLUME 11.3 fL (7.4-10.4); MONOCYTES 12.9 % (2-11); NEUTROPHILS 46.8 % (40-80); PLATELET COUNT 146 10x3/uL (130-400); RBC 4.96 10x6/uL (4.20-6.10); RDW 14.5 % (11.5-14.5); WBC 8.2 10x3/uL (4.8-10.8)
[2017-05-21 09:14] LABS: CALC OSMOLALITY 281 mosm/kg (275-300); CALCIUM 9.1 mg/dL (8.5-10.1); CARBON DIOXIDE 27.1 mmol/L (21.0-32.0); CHLORIDE - SERUM 105 mmol/L (98-107); GLUCOSE 126 mg/dL (74-106); POTASSIUM - SERUM 4.2 mmol/L (3.5-5.1); SODIUM 141 mmol/L (136-145); UREA NITROGEN 11 mg/dL (7-18); eGFR NON AFRICAN AMERICAN 77 mL/min (90-120)
== END 2017-05-21 14:00 | disposition home or self-care (01) ==
LOC: D.CATH 07:41
PROVIDERS: Internal Medicine Interventional Cardiology
DX: I25.119 Atherosclerotic heart disease of native coronary artery with unspecified angina pectoris (principal); Z95.5 Presence of coronary angioplasty implant and graft; I10 Essential (primary) hypertension; E78.5 Hyperlipidemia, unspecified; Z01.812 Encounter for preprocedural laboratory examination

== ENCOUNTER 2020-09-23 08:41 | Day surgery (SDC) | payer MEDICARE ==
[~2020-09-23] VITALS: Ht 167.6 cm; Wt 90.7 kg
--- NOTE | ~2020-09-23 | OP ---
PATIENT NAME: LILLY RAZO MEDICAL RECORD: [id number] :38 LOCATION:[facility] ADMISSION DATE: SURGEON: FAY SARGENT MD DATE OF OPERATION: 09/23/2020 PREOPERATIVE DIAGNOSIS: Foreign body, left forearm. POSTOPERATIVE DIAGNOSIS: Foreign body, left forearm. PROCEDURE PERFORMED: 1. Removal of foreign body, left forearm. 2. Incision and debridement of left forearm (skin and subcutaneous tissue). INDICATIONS FOR THE PROCEDURE: Mr. Razo is an 80-year-old male who was working in his garden 1 to 2 weeks ago when he hit his forearm on a bamboo stake. He was impaled by the end of the bamboo and removed a couple of pieces, but feels like there is still a piece present. There is an area of tenderness across the forearm with swelling and induration surrounding it. He has had some drainage from the wound as well. Ultrasound shows evidence of a foreign body within the subcutaneous tissues. I talked with the patient in clinic about his injury and need for surgical removal. Arrangements were made for him to come to the operating room today. Risks, benefits and alternatives of surgery were discussed with the patient and consent was obtained. DESCRIPTION OF THE PROCEDURE: The patient was met in the holding area where his identity and confirmation of procedure was performed. The left upper extremity was marked. He was taken to the operating room where he was placed supine on the operating table and anesthesia was administered. Tourniquet was applied to the left arm and left arm was prepped and draped in a sterile fashion. The patient received preoperative antibiotics and timeout was performed prior to initiating the case. On initiation of the case, the arm was exsanguinated and the tourniquet was raised. Total tourniquet time was 19 minutes. An elliptical incision was made around the wound at the medial forearm. The skin and subcutaneous tissue were excised and a wooden foreign body was then noted in the wound extending posteriorly in the subcutaneous tissues. It was able to be easily removed with a forceps. The foreign body measured approximately 3 cm in length. The wound tract had some surrounding areas of fatty necrosis, which was debrided with a curette. The soft tissues were debrided with the scalpel and the skin edges of the underlying necrotic tissue were excised. The wound was irrigated thoroughly with saline. The wound was then closed and the soft tissue tract of the foreign body was packed with quarter-inch iodoform. This was covered with a sterile dressing. The patient was turned back over to anesthesia where he was awakened, extubated, and taken to recovery room in stable condition. POSTOPERATIVE PLAN: The patient is going to return home with his family today. Continue his p.o. clindamycin. Plan to see him back in clinic on Wednesday and we will remove packing at that time and perform wound check. COMPLICATIONS: None. ESTIMATED BLOOD LOSS: 5 mL. ANESTHESIA: General. OPERATIVE REPORT [id number] LILLY RAZO TRANSINT:[id number] Voice Confirmation ID: [id number] DOCUMENT ID: [id number] FAY SARGENT MD CC: [id number] DICTATION DATE: 09/23/20 1323 FILTER CLEANER: 09/23/20 1704 [facility] 09/23/20 [facility] [address] [place] [address]
[2020-09-23 09:12] LABS: BASOPHILS 0.7 % (0-2); EOSINOPHILS 2.8 % (0-7); HEMATOCRIT 43.5 % (42.0-54.0); HEMOGLOBIN 14.4 g/dL (13.5-17.5); LYMPHOCYTES 32.6 % (15-50); MCH 29.8 pg (26.0-34.0); MCHC 33.1 g/dL (31.0-37.0); MEAN PLATELET VOLUME 8.7 fL (7.4-10.4); MONOCYTES 11.8 % (2-11); NEUTROPHILS 52.1 % (40-80); RBC 4.84 10x6/uL (4.20-6.10); RDW 14.5 % (11.5-14.5); WBC 5.3 10x3/uL (4.8-10.8)
[2020-09-23 09:16] LABS: ANION GAP 10.4 mmol/L (8-16); CALCIUM 8.9 mg/dL (8.5-10.1); CARBON DIOXIDE 28.8 mmol/L (21.0-32.0); CREATININE - SERUM 1.2 mg/dL (0.6-1.3); POTASSIUM - SERUM 4.2 mmol/L (3.5-5.1)
[2020-09-23 09:24] LABS: PLATELET COUNT 192 10x3/uL (130-400)
[2020-09-23 09:46] VITALS: Ht 167.6 cm; Wt 90.7 kg
== END 2020-09-23 15:00 | disposition home or self-care (01) ==
LOC: D.OPS 08:41
PROVIDERS: Anesthesiology; ATTEND Orthopaedic Surgery
DX: M79.602 Pain in left arm (principal); Z18.9 Retained foreign body fragments, unspecified material; J44.9 Chronic obstructive pulmonary disease, unspecified; J45.909 Unspecified asthma, uncomplicated; E78.5 Hyperlipidemia, unspecified

== ENCOUNTER 2020-09-25 17:09 | Inpatient (IN) | payer MEDICARE ==
[~2020-09-25] VITALS: Ht 167.6 cm; Wt 98.0 kg
[2020-09-25 17:52] LABS: BASOPHILS 0.4 % (0-2); EOSINOPHILS 0.9 % (0-7); HEMATOCRIT 40.2 % (42.0-54.0); HEMOGLOBIN 13.2 g/dL (13.5-17.5); MCH 29.5 pg (26.0-34.0); MCHC 32.9 g/dL (31.0-37.0); MCV 89.7 fL (80.0-100.0); MEAN PLATELET VOLUME 9.1 fL (7.4-10.4); MONOCYTES 10.8 % (2-11); NEUTROPHILS 60.9 % (40-80); PLATELET COUNT 183 10x3/uL (130-400); RBC 4.48 10x6/uL (4.20-6.10); RDW 14.6 % (11.5-14.5); WBC 8.5 10x3/uL (4.8-10.8)
[2020-09-25 18:00] LABS: APTT 29.5 SECONDS (22.8-39.4); CALC OSMOLALITY 284 mosm/kg (275-300); CALCIUM 8.5 mg/dL (8.5-10.1); CARBON DIOXIDE 29.6 mmol/L (21.0-32.0); CHLORIDE - SERUM 105 mmol/L (98-107); GLUCOSE 110 mg/dL (74-106); INR 1.2 (0.85-1.17); POTASSIUM - SERUM 3.9 mmol/L (3.5-5.1); PROTIME 14.1 SECONDS (11.6-15.0); SODIUM 142 mmol/L (136-145); UREA NITROGEN 16 mg/dL (7-18); eGFR NON AFRICAN AMERICAN 76 mL/min (90-120)
[2020-09-25 18:22] LABS: ALBUMIN 3.5 g/dL (3.4-5.0); ALKALINE PHOSPHATASE 46 U/L (30-120); ALT (SGPT) 24 U/L (10-68); BILIRUBIN - TOTAL 0.23 mg/dL (0.2-1.3); CKMB 6.3 U/L (0.0-3.6); CREATINE KINASE 154 UL (21-232); MAGNESIUM - SERUM 2.2 mg/dL (1.8-2.4); PROTEIN - SERUM 6.2 g/dL (6.4-8.2)
[2020-09-25 19:00] VITALS: BP 125/71
--- NOTE | 2020-09-25 19:39 | NUR ---
ATTEMPTED TO CALL REPORT TO FLOOR NURSE NOT AVAILABLE AT THIS TIME.
[2020-09-25 21:03] LABS: CKMB 83.9 U/L (0.0-3.6)
[2020-09-25 21:13] LABS: CREATINE KINASE 545 UL (21-232)
[2020-09-25 21:32] VITALS: BP 156/79
[2020-09-25] MEDS ORDERED: HCTZ25 MG PO (21:33)
[2020-09-26] VITALS (15 sets, daily range): BP systolic 97–162; BP diastolic 45–79; Ht 167.6 cm; Wt 98.0 kg
[2020-09-26 03:19] LABS: BASOPHILS 0.6 % (0-2); EOSINOPHILS 1.2 % (0-7); HEMOGLOBIN 13.8 g/dL (13.5-17.5); LYMPHOCYTES 29.6 % (15-50); MCH 30.2 pg (26.0-34.0); MCHC 33.7 g/dL (31.0-37.0); MCV 89.6 fL (80.0-100.0); MEAN PLATELET VOLUME 9.4 fL (7.4-10.4); MONOCYTES 11.6 % (2-11); PLATELET COUNT 169 10x3/uL (130-400); RBC 4.57 10x6/uL (4.20-6.10); RDW 14.6 % (11.5-14.5); WBC 7.3 10x3/uL (4.8-10.8)
[2020-09-26 03:51] LABS: ALBUMIN 3.3 g/dL (3.4-5.0); ALKALINE PHOSPHATASE 45 U/L (30-120); BILIRUBIN - TOTAL 0.33 mg/dL (0.2-1.3); CALC OSMOLALITY 287 mosm/kg (275-300); CALCIUM 8.4 mg/dL (8.5-10.1); CARBON DIOXIDE 30.1 mmol/L (21.0-32.0); CHLORIDE - SERUM 108 mmol/L (98-107); CKMB 121.6 U/L (0.0-3.6); GLUCOSE 95 mg/dL (74-106); POTASSIUM - SERUM 4.2 mmol/L (3.5-5.1); SODIUM 144 mmol/L (136-145); UREA NITROGEN 15 mg/dL (7-18); eGFR NON AFRICAN AMERICAN 76 mL/min (90-120)
[2020-09-26 03:54] LABS: ALT (SGPT) 37 U/L (10-68); CREATINE KINASE 748 UL (21-232); TROPONIN-I 66.891 ng/mL (0.000-0.060)
--- NOTE | 2020-09-26 06:31 | NUR ---
LAB CALLED A CRITICAL TROPONIN OF 66.891 AND CK-MB 121.6. EKG COMPLETED AND V/S 98.1,142/73,58,20,93 Q2 SAT ON 2 LITERS.[address] BOYLE NOTIFIED WITH ORDERS FOR CATH THIS AM AND HEPERIN AT 900 UNITS AN HOUR. HE HAS BEEN PREPED AND HEPRIN INFUSING. HAS BEEN NPO ALL NIGHT. AT BEDSIDE. DENIES ANT DISTRESS OR PAIN. SAID HE FEELS BETTER THIS AM.
[2020-09-26 06:44] LABS: CHOL - HDL RATIO 3.7 ratio (2.3-4.9); LDL-HDL RATIO 1.9 ratio (1.5-3.5)
--- NOTE | 2020-09-26 08:11 | NUR ---
PT PREOPED FOR VALIDATION LEADER. BEEN NPO, CONSENTS SIGNED. ALL NEEDS MET AT THIS TIME. CLWR
--- NOTE | 2020-09-26 10:19 | NUR ---
PT BACK FROM GROMMET MACHINE OPERATOR. RR EVEN NONLABORED. INSTRUCTED PT TO STAY FLAT 4 HRS. R GROIN WOUND CDI. NO PAIN AT THIS TIME. ALL NEEDS MET. CLWI.
--- NOTE | 2020-09-26 18:26 | NUR ---
PT SITTING AT BEDSIDE WITH FAMILY MEMBER, ALL NEEDS MET AT THIS TIME. CLWR.
[2020-09-27 03:13] VITALS: BP 130/58
--- NOTE | 2020-09-27 03:32 | NUR ---
[facility] PROVIDED FOR CHRONIC BACK PAIN. PT DENIES CHEST PAIN. NO VOICED C/O OR CONCERNS. CL IN REACH
[2020-09-27] MEDS ORDERED: PLAVIX75 MG PO (08:35)
[2020-09-27] MEDS ORDERED: CRESTOR5 MG PO (08:37)
[2020-09-27 09:20] VITALS: BP 150/73
--- NOTE | 2020-09-27 10:07 | NUR ---
PT'S DISCHARGE INSTRUCTIONS REVIEWED AND SIGNED. IV OUT AND TELEMETRY REMOVED. TO DRIVE HOME, WHEELED TO FRONT DOORS.
--- NOTE | 2020-09-30 09:26 | EC ---
PATIENT:LILLY GOOD DATE OF SERVICE: 09/26/20 SEX: M MEDICAL RECORD: [id number] DATE OF : 38 LOCATION:D. D.211 AGE OF PATIENT: 80 ADMISSION DATE: 09/26/20 REFERRING PHYSICIAN: INTERPRETING PHYSICIAN: MUNA PUCKETT MD ECHOCARDIOGRAM REPORT ECHO CHARGES 4 ECHO COMPLETE Date: 09/26/20 CLINICAL DIAGNOSIS: CP ECHOCARDIOGRAPHIC MEASUREMENTS (adult normal given) AC root (d.<3.7cm) 3.3 cm LV Septum d (<1.2 cm> 2.0 cm Valve Excursion 1.5 cm LV Septum (systole) 2.2 cm Left Atria (s.<4.0cm> 3.5 cm LVPW d(<1.2cm) 0.9 cm RV (d.<2.3cm) 3.3 cm LVPW (sytole) 1.3 cm LV diastole(<5.6CM) 4.7 cm MV E-F(>70mm/sec) cm LV systole 3.0 cm LVOT Diameter 1.7 cm MV exc.(>10mm) 1.3 cm Est.ejection fraction (50-75%) % DOPPLER: LVIT cm/sec A 90 cm/sec E 48 cm/sec LA cm/sec RVSP 29 mmHg LVOT 110 cm/sec AOP1/2T m/s Asc. Ao 147 cm/sec RVOT 73 cm/sec RA cm/sec PA 86 cm/sec AV Gradient Peak 8.7 mmHg AV Mean 4.5 mmHg AV Area 1.6 cm MV Gradient Peak 4.5 mmHg MV Mean 2.0 mmHg MV Area cm COMMENTS: Elevator Examiner: Fazrad CHUNGSHENA MANJEET Regional Service Manager: 2 Dr. Perrin TAPE# Pericardial Effusion N DATE OF SERVICE: Adequate 2D, color-flow imaging, spectral Doppler, and M-Mode FINDINGS: LVH is present. LV internal dimensions are normal. Wall motion is normal. EF is greater than or equal to 55%. Aortic valve is tricuspid. No evidence of stenosis by Doppler interrogation. Left atrium is normal at 3.5 cm. Mitral valve shows no prolapse. Trace MR. Right side is grossly normal. Mild TR. ECHOCARDIOGRAM REPORT [id number] LILLY GOOD TRANSINT:[id number] Voice Confirmation ID: [id number] DOCUMENT ID: [id number] MUNA PUCKETT MD at 0926 CC: [id number] DICTATION DATE: 09/27/20 1130 BLEACH PLANT OPERATOR: 09/27/20 1401 [facility] 09/27/20 [id number] [place] [address]
== END 2020-09-27 10:08 | disposition home or self-care (01) | DRG 251 ==
LOC: D.ER 17:09 → D.M2 19:30 → OBSVTIME 19:30 → D.M2 19:30
PROVIDERS: Family Medicine; Internal Medicine Cardiovascular Disease; ADMIT Family Medicine Adult Medicine; ATTEND Family Medicine Adult Medicine
PROC: 02C03ZZ Extirpation of Matter from Coronary Artery, One Artery, Percutaneous Approach (ICD-10-PCS; 2020-09-26)
PROC: 4A023N7 Measurement of Cardiac Sampling and Pressure, Left Heart, Percutaneous Approach (ICD-10-PCS; 2020-09-26)
PROC: B2111ZZ Fluoroscopy of Multiple Coronary Arteries using Low Osmolar Contrast (ICD-10-PCS; 2020-09-26)
PROC: B2151ZZ Fluoroscopy of Left Heart using Low Osmolar Contrast (ICD-10-PCS; 2020-09-26)
PROC: 02703ZZ Dilation of Coronary Artery, One Artery, Percutaneous Approach (ICD-10-PCS; principal; 2020-09-26 08:00)
DX: I21.4 Non-ST elevation (NSTEMI) myocardial infarction (principal); I25.10 Atherosclerotic heart disease of native coronary artery without angina pectoris; I11.0 Hypertensive heart disease with heart failure; I50.9 Heart failure, unspecified; G89.29 Other chronic pain; M54.9 Dorsalgia, unspecified; K21.9 Gastro-esophageal reflux disease without esophagitis; E78.5 Hyperlipidemia, unspecified; Z95.0 Presence of cardiac pacemaker

== ENCOUNTER → 2020-10-24 08:09 | Outpatient (CLI) | payer MEDICARE ==
[2020-09-26 12:03] VITALS: BMI 34.8
[~2020-10-24 08:09] MED LIST changes: +CRESTOR5 MG PO
== END | disposition home or self-care (01) ==
LOC: D.HCCECHO 08:09
PROVIDERS: ATTEND Internal Medicine Cardiovascular Disease
DX: I25.10 Atherosclerotic heart disease of native coronary artery without angina pectoris (principal)